=== PATIENT | male | born 1990 | race African-American/Black ===

== ENCOUNTER 2017-10-20 16:29 | Emergency (ER) | payer MEDICAID ==
[~2017-10-20] VITALS: Ht 182.9 cm; Wt 63.5 kg
[2017-10-20 16:34] VITALS: BP 132/80
[2017-10-20] MEDS ORDERED: NORCO 5-325 TA1 EACH ORAL (16:51)
--- NOTE | 2017-10-20 16:51 | Emergency Room Report ---
History of Present Illness General Chief Complaint: Sore Throat Source: Patient Present Illness HPI Patient is a 19-year-old male who presents today with complaint of sore throat that began 6 days ago. He states the pain is currently 8 out of 10 in severity , worse with swallowing. He states he's been taking Motrin at home for the pain with some relief. He denies any cough, runny nose, hoarseness or associated symptoms. He has no significant medical problems and denies tobacco , alcohol or drug use. Patient History Reviewed Nursing Documentation: PMH: Agreed; PSxH: Agreed Nursing Documentation-PM Past Medical History: No Stated History Review of Systems ENT: Reports: throat pain All Other Systems: negative except mentioned in HPI Physical Exam Vital Signs Date Time Temp Pulse Resp B/P (MAP) Pulse Ox O2 Delivery O2 Flow Rate FiO2 10/20/18 16:24 100.0 78 16 132/80 98 Room Air 100.0 Sp02 EP Interpretation: reviewed, normal General Appearance: no apparent distress, alert, GCS 15, non-toxic Head: normocephalic, atraumatic Eyes: bilateral eye normal inspection, bilateral eye PERRL ENT: hearing grossly normal, no angioedema, normal voice, other - tonsils are beefy red with exudates bilaterally. Uvula is midline. Neck: full range of motion, supple/symm/no masses Respiratory: chest non-tender, lungs clear, normal breath sounds, speaking full sentences Cardiovascular #1: regular rate, rhythm, no edema Cardiovascular #2: 2+ carotid (R), 2+ carotid (L), 2+ radial (R), 2+ radial (L) , 2+ dorsalis pedis (R), 2+ dorsalis pedis (L) Gastrointestinal: normal bowel sounds, non tender, soft, non-distended, no guarding, no rebound Rectal: deferred Genitourinary: normal inspection, no CVA tenderness Musculoskeletal: back normal, gait/station normal, normal range of motion, non- tender, calf tenderness Neurologic: alert, oriented x3, responsive, motor strength/tone normal, sensory intact, speech normal Psychiatric: judgement/insight normal, memory normal, mood/affect normal, no suicidal/homicidal ideation Reflexes: 3+ bicep (R), 3+ bicep (L), 3+ tricep (R), 3+ tricep (L), 3+ knee (R) , 3+ knee (L) Skin: normal color, no rash, warm/dry, well hydrated Lymphatic: no adenopathy Medical Decision Making PA Attestation Supervising physician is Dr. West Diagnostic Impression: Primary Impression: Acute tonsillitis ER Course Findings consistent with acute tonsillitis. Patient is given Bicillin, Toradol and Decadron in the ED with improvement of symptoms on reevaluation. He is discharged home with [place] instructed to follow up with PCP for reevaluation. Patient understands plan and is agreeable. Last Vital Signs Date Time Temp Pulse Resp B/P (MAP) Pulse Ox O2 Delivery O2 Flow Rate FiO2 10/20/17 16:34 100.0 16 132/80 98 Room Air 100.0 10/20/17 16:24 78 Status: improved Disposition: HOME, SELF-CARE Condition: Stable Scripts Hydrocodone Bit/Acetaminophen 5-325* (NORCO 5-325*) 1 Each Tablet 1 TAB ORAL Q6H PRN for For Pain, #10 TAB 0 Refills Prov: Sona Salguero 10/20/17 Patient Instructions: Strep Throat Sona Salguero Oct 20, 2017 16:51
[2017-10-20] MEDS ORDERED: Dexamethasone 4mg/ml vial IVP ONE (17:00)
[2017-10-20] MEDS ORDERED: Bicillin LA 1.2MMU/2ML SYR IM ONE (17:00)
[2017-10-20] MEDS ORDERED: Ketorolac 30mg Inj IV ONE (17:00)
[2017-10-20] MEDS ORDERED: Ketorolac 30mg Inj ONE (17:02)
[2017-10-20 17:10] VITALS: BP 132/80
== END 2017-10-20 17:10 | disposition home or self-care (01) ==
LOC: EDBD 16:29 → EMR 17:01
DX: J03.90 Acute tonsillitis, unspecified (principal)
CPT/HCPCS: 99283; J0561; J1100; J1885